=== PATIENT | female | born 1990 | race Caucasian/White ===

== ENCOUNTER 2022-07-25 12:50 | Inpatient (IN) | payer OTHER ==
[~2022-07-25] VITALS: Ht 162.6 cm; Wt 119.4 kg
[2022-07-25] MEDS ORDERED: SODIUM CHLORIDE 0.9% 1,000 ML IV ONE (13:30)
[2022-07-25 14:02] LABS: CHLORIDE 106 mEq/L (98-107)
[2022-07-25 14:06] LABS: HCG SCREEN NEGATIVE
[2022-07-25 14:12] LABS: BASOPHILS % 0.5 % (0.0-2.0); EOSINOPHILS % 1.1 % (0.0-5.0); HEMATOCRIT. 24.9 % (36.0-48.0); HEMOGLOBIN. 7.6 g/dL (12.0-16.0); LYMPHOCYTES % 16.2 % (20.0-50.0); MEAN CORPUSCULAR HEMOGLOBIN 21.2 pg (28.0-32.0); MEAN CORPUSCULAR VOLUME 69.7 fL (81.0-99.0); MEAN PLATELET VOLUME 8.5 fl (7.4-10.4); MONOCYTES % 6.8 % (2.0-8.0); NEUTROPHILS % 75.4 % (40.0-76.0); PLATELET 305 x1000/uL (130-400); RED BLOOD CELL COUNT 3.57 mill/uL (4.2-5.4)
[2022-07-25 14:48] LABS: PLATELET ESTIMATE NORMAL
[2022-07-25 20:11] LABS: HEMATOCRIT 23.7 % (36.0-48.0); HEMOGLOBIN 7.1 g/dL (12.0-16.0)
[2022-07-25] MEDS ORDERED: MEDROXYPROGESTERONE ACETATE 150MG/ML VIAL IM NR (21:45)
[2022-07-25] MEDS ORDERED: ASCORBIC ACID 500 MG TABLET PO NR (21:45)
[2022-07-25] MEDS: FERROUS SULFATE 325MG TABLET PO SCH (22:28)
[2022-07-26] VITALS (10 sets, daily range): BP systolic 106–132; BP diastolic 59–79
[2022-07-26] MEDS ORDERED: ACETAMINOPHEN 325MG TABLET PO PRN (02:30)
[2022-07-26 03:37] LABS: TOTAL IRON BINDING CAPACITY 329 ug/dL (250-450)
[2022-07-26] MEDS: FERROUS SULFATE 325MG TABLET PO SCH ×3 (07:42→16:50)
[2022-07-26] MEDS: PANTOPRAZOLE 40MG DR TABLET PO SCH (08:04)
[2022-07-26] MEDS: MULTIVITAMINS,THER W-MINERALS TABLET PO SCH (08:04)
[2022-07-26 09:59] LABS: BASOPHILS % 0.5 % (0.0-2.0); EOSINOPHILS % 1.2 % (0.0-5.0); HEMOGLOBIN. 8.5 g/dL (12.0-16.0); LYMPHOCYTES % 24.2 % (20.0-50.0); MEAN CORPUSCULAR HEMOGLOBIN 22.6 pg (28.0-32.0); MEAN CORPUSCULAR VOLUME 72.2 fL (81.0-99.0); MEAN PLATELET VOLUME 8.4 fl (7.4-10.4); MONOCYTES % 7.8 % (2.0-8.0); NEUTROPHILS % 66.3 % (40.0-76.0); PLATELET 313 x1000/uL (130-400); RED BLOOD CELL COUNT 3.74 mill/uL (4.2-5.4); RED CELL DISTRIBUTION WIDTH 19.2 % (11.6-14.6)
[2022-07-26 10:11] LABS: CHLORIDE 107 mEq/L (98-107)
[2022-07-26 16:12] LABS: HEMATOCRIT 25.9 % (36.0-48.0); HEMOGLOBIN 8.1 g/dL (12.0-16.0)
[2022-07-26 21:18] LABS: HEMOGLOBIN 8.8 g/dL (12.0-16.0)
[2022-07-27] VITALS: BP 112/53
[2022-07-27 01:04] LABS: HEMOGLOBIN 8.2 g/dL (12.0-16.0)
[2022-07-27 04:00] VITALS: BP 114/68
[2022-07-27] MEDS: FERROUS SULFATE 325MG TABLET PO SCH ×3 (06:29→16:05)
[2022-07-27 06:53] LABS: BASOPHILS % 0.4 % (0.0-2.0); EOSINOPHILS % 1.9 % (0.0-5.0); HEMATOCRIT. 26.1 % (36.0-48.0); HEMOGLOBIN. 8.3 g/dL (12.0-16.0); LYMPHOCYTES % 23.6 % (20.0-50.0); MEAN CORPUSCULAR HEMOGLOBIN 23.1 pg (28.0-32.0); MEAN CORPUSCULAR VOLUME 72.5 fL (81.0-99.0); MEAN PLATELET VOLUME 8.4 fl (7.4-10.4); MONOCYTES % 8.7 % (2.0-8.0); NEUTROPHILS % 65.4 % (40.0-76.0); PLATELET 307 x1000/uL (130-400); RED BLOOD CELL COUNT 3.59 mill/uL (4.2-5.4); RED CELL DISTRIBUTION WIDTH 19.7 % (11.6-14.6)
[2022-07-27 07:40] LABS: CHLORIDE 108 mEq/L (98-107)
[2022-07-27 07:52] LABS: HDL CHOLESTEROL 32 mg/dL (40-59); LDL CHOLESTEROL 113 mg/dL (5-100)
[2022-07-27 08:00] VITALS: BP 114/65
[2022-07-27] MEDS: PANTOPRAZOLE 40MG DR TABLET PO SCH (08:13)
[2022-07-27] MEDS: MULTIVITAMINS,THER W-MINERALS TABLET PO SCH (08:13)
[2022-07-27] MEDS ORDERED: DEXTROSE 50% WATER 50ML SYRINGE IV PRN (11:00)
[2022-07-27 12:00] VITALS: BP 116/62
[2022-07-27] MEDS: BLOOD SUGAR DIAGNOSTIC STRIP TEST SCH ×2 (12:04→17:54)
[2022-07-27] MEDS: INSULIN LISPRO 100 UNITS/ML SUBCUT SCH ×2 (12:08→17:30)
[2022-07-27 12:29] LABS: HEMATOCRIT 26.1 % (36.0-48.0); HEMOGLOBIN 8.3 g/dL (12.0-16.0)
[2022-07-27 16:00] VITALS: BP 110/68
[2022-07-27 17:06] VITALS: BP 110/68
[2022-07-27] MEDS ORDERED: ATORVASTATIN CALCIUM 20MG TABLET PO SCH (21:00)
== END 2022-07-27 18:18 | disposition home or self-care (01) | DRG 760 ==
LOC: ER 12:50 → MICUSO 20:00 → 4WST 07-26 01:26
PROVIDERS: ADMIT Internal Medicine; ATTEND Internal Medicine
PROC: 30233N1 Transfusion of Nonautologous Red Blood Cells into Peripheral Vein, Percutaneous Approach (ICD-10-PCS; principal; 2022-07-26)
DX: N85.8 Other specified noninflammatory disorders of uterus (principal); E87.1 Hypo-osmolality and hyponatremia; Z68.42 Body mass index [BMI] 45.0-49.9, adult; G43.909 Migraine, unspecified, not intractable, without status migrainosus; N92.0 Excessive and frequent menstruation with regular cycle; R19.05 Periumbilic swelling, mass or lump; D50.0 Iron deficiency anemia secondary to blood loss (chronic); R74.01 Elevation of levels of liver transaminase levels; E11.65 Type 2 diabetes mellitus with hyperglycemia; E78.5 Hyperlipidemia, unspecified; E66.01 Morbid (severe) obesity due to excess calories; Z83.3 Family history of diabetes mellitus
CPT/HCPCS: 36415; 74176; 76700; 76830; 76856; 80048; 80053; 80061; 80076; 82962; 83036; 83540; 83550; 84443; 84703; 85014; 85018; 85025; 86850; 86900; 86920; 99285; J1050; J1815; J7030; P9016